=== PATIENT | male | born 1995 | race African-American/Black ===

== ENCOUNTER 2019-02-16 23:46 | Emergency (ER) | payer OTHER ==
--- NOTE | 2019-02-17 00:36 | ED Physician Documentation ---
PD HPI HEENT - Stated complaint Stated Complaint: SORE THROAT - Chief complaint Chief Complaint: Heent - History obtained from History obtained from: Patient - History of Present Illness Timing - onset: How many days ago (1-2) Timing - duration: Days (1-2) Timing - details: Gradual onset Location: Throat Improves: Nothing Worsens: Swalllowing Associated symptoms: Fever Similar symptoms before: Has not had sx before Recently seen: Not recently seen Review of Systems Constitutional: reports: Fever, Chills, Sweats Throat: reports: Sore throat PD PAST MEDICAL HISTORY - Past Medical History Past Medical History: Yes Cardiovascular: None Respiratory: None Neuro: None Endocrine/Autoimmune: None GI: None : None HEENT: None Psych: None Musculoskeletal: None Derm: None - Past Surgical History Past Surgical History: No - Present Medications Home Medications: Ambulatory Orders Medication Instructions Recorded Confirmed Amoxicillin 500 mg PO BID #19 capsule 02/17/19 - Allergies Allergies/Adverse Reactions: Allergies Allergy/AdvReac Type Severity Reaction Status Date / Time No Known Drug Allergies Allergy Verified 02/16/19 23:54 - Social History Does the pt smoke?: No Smoking Status: Never smoker Does the pt drink ETOH?: Yes Does the pt have substance abuse?: No - Immunizations Immunizations are current?: Yes - POLST Patient has POLST: No PD ED PE NORMAL - Vitals Vital signs reviewed: Yes - General General: Alert and oriented X 3, No acute distress, Well developed/nourished - HEENT HEENT: Moist mucous membranes - Neck Neck: Supple, no meningeal sign PD ED PE EXPANDED - HEENT HEENT: Pharyngeal erythema, Swollen tonsils, Tonsillar exudate Results - Vitals Vitals: Vital Signs - 24 hr 02/16/19 02/17/19 23:49 01:14 Temperature 38.6 C H 38.8 C H Heart Rate 102 H 96 Respiratory 16 16 Rate Blood Pressure 129/66 135/77 H O2 Saturation 95 98 Oxygen O2 Source Room air - Labs Labs: Laboratory Tests 02/16/19 23:58 Group A Strep Rapid POSITIVE H PD MEDICAL DECISION MAKING - ED course Complexity details: reviewed results, considered differential, d/w patient Departure - Departure Disposition: 01 Home, Self Care Clinical Impression: Strep pharyngitis Condition: Good Health Concerns: sore throat Plan of Treatment: antibiotic as prescribed Care Goals: symptom control pending resolution of infection Assessment: see diagnosis Instructions: ED Strep Pharyngitis Conf Follow-Up: STEVEN Ling [Provider Group] Prescriptions: Amoxicillin 500 mg PO BID #19 capsule Forms: Activity restrictions Discharge Date/Time: 02/17/19 01:14
[2019-02-17] MEDS ORDERED: CHERRY SYRUP 10 ML UDC PO ONE (00:57)
[2019-02-17] MEDS ORDERED: AMOXICILLIN 250 MG CAPSULE PO STA (00:57)
[2019-02-17] MEDS ORDERED: DEXAMETHASONE 10 MG/ML VIAL PO STA (00:57)
[2019-02-17] MEDS ORDERED: ACETAMINOPHEN 325 MG TABLET PO STA (00:57)
[2019-02-17 01:14] VITALS: BP 135/77
== END 2019-02-17 01:14 | disposition home or self-care (01) ==
LOC: ED 23:46
DX: J02.0 Streptococcal pharyngitis (principal)
CPT/HCPCS: 87430; 99283; A9270